=== PATIENT | female | born 1955 | race Caucasian/White ===

== ENCOUNTER → 2018-01-05 20:45 | Outpatient (CLI) | payer MEDICARE, MEDICAID | END | disposition home or self-care (01) | LOC: D.MAMMO 15:00 | DX: Z12.31 Encounter for screening mammogram for malignant neoplasm of breast (principal) ==

== ENCOUNTER 2018-07-12 05:37 | Day surgery (SDC) | payer MEDICARE, MEDICAID ==
[~2018-07-12] VITALS: Ht 152.4 cm; Wt 107.7 kg
[2018-07-12 05:58] LABS: HEMATOCRIT 38.5 % (36.0-48.0); HEMOGLOBIN 12.8 g/dL (12-16); MCH 28.2 pg (26.0-34.0); MCHC 33.2 g/dL (31.0-37.0); MCV 84.8 fL (80.0-100.0); MEAN PLATELET VOLUME 10.1 fL (7.4-10.4); RBC 4.54 10x6/uL (4.00-5.40); RDW 14.3 % (11.5-14.5); WBC 7.2 10x3/uL (4.8-10.8)
[2018-07-12 06:15] LABS: CALCIUM 8.8 mg/dL (8.5-10.1); CARBON DIOXIDE 21.7 mmol/L (21.0-32.0); CREATININE - SERUM 1.2 mg/dL (0.6-1.3); POTASSIUM - SERUM 3.7 mmol/L (3.5-5.1)
[2018-07-12] MEDS ORDERED: GABAPENTIN100 MG PO (06:59)
[2018-07-12] MEDS ORDERED: ZOLOFT50 MG PO (07:00)
[2018-07-12] MEDS ORDERED: TOPAMAX50 MG PO (07:01)
[2018-07-12] MEDS ORDERED: MOBIC7.5 MG PO (07:01)
[2018-07-12] MEDS ORDERED: CALCIUM 600 +1 EAC3 PO (07:02)
[2018-07-12] MEDS ORDERED: BAYER CHEWABLE81 MG PO (07:02)
[2018-07-12] MEDS ORDERED: HYDROCODON-ACE1 EAC7 PO (07:03)
[2018-07-12] MEDS ORDERED: FLUTICASONE PRO16 GM NASAL (07:03)
[2018-07-12] MEDS ORDERED: FUROSEMIDE20 MG PO (07:03)
[2018-07-12] MEDS ORDERED: ATARAX 25 MG TA25 MG PO (07:04)
[2018-07-12] MEDS ORDERED: PRINIVIL20 MG PO (07:04)
[2018-07-12] MEDS ORDERED: POTASSIUM99 M1 PO (07:05)
[2018-07-12] MEDS ORDERED: OMEPRAZOLE40 MG PO (07:05)
[2018-07-12] MEDS ORDERED: VESICARE10 MG PO (07:05)
[2018-07-12] MEDS ORDERED: VITAMIN E200 UNI1 PO (07:05)
[2018-07-12 07:10] VITALS: BP 123/45; Ht 152.4 cm; Wt 107.7 kg
--- NOTE | 2018-07-12 13:50 | OP ---
PATIENT NAME: HILLARY HE MEDICAL RECORD: [id number] :53 LOCATION:[facility] ADMISSION DATE: SURGEON: ALLAN HERNANDEZ DO DATE OF OPERATION: 07/12/2018 PROCEDURE: EGD with biopsies. INDICATIONS FOR PROCEDURE: Dysphagia and GERD. SCOPE: Olympus video gastroscope. MEDICATIONS: Propofol 180 mg IV per anesthesia. ESTIMATED BLOOD LOSS: Minimal. COMPLICATIONS: None. FINDINGS AND DESCRIPTION OF PROCEDURE: Informed consent was given. The patient was made comfortable with the above medication. After reaching an adequate level of sedation by slow IV push, the patient was placed on her left side. The endoscope was advanced under direct visualization through the mouth to the second portion of the duodenum. In the upper esophagus, just distal to the upper esophageal sphincter and located at 18 cm from the incisors, there was a small area of raised tissue, which was approximately 3-4 mm in diameter. Two cold forceps biopsies were taken of this site with the appearance that the entire area of abnormal tissue was removed. These will be submitted for histopathology. The endoscope was advanced further down the esophagus to the GE junction. There were no strictures, rings, or other abnormalities encountered throughout the esophagus. At the GE junction, there was mild evidence of LA class A reflux-induced esophagitis. The endoscope was advanced beyond the GE junction into the stomach and retroflexed to view the cardia, where a small sliding hiatal hernia was present. The fundus appeared normal. Throughout the body, antrum, and prepyloric regions of the stomach, there were patchy areas of erythema and granularity consistent with gastritis. Random cold forceps biopsies were taken to submit for histopathology and to rule out the presence of H. pylori. The endoscope was advanced beyond the pylorus into the duodenum. The entire examined duodenum appeared normal to the second portion. The endoscope was withdrawn from the patient. The patient tolerated the procedure well and there were no complications. IMPRESSIONS: 1. Esophageal nodule at 18 cm as described above, biopsies taken. 2. LA class A reflux-induced esophagitis. 3. Small sliding hiatal hernia. 4. Gastritis. PLAN AND RECOMMENDATIONS: 1. Discharge home when recovery parameters are met. 2. GERD diet and reflux precautions. 3. Continue current medications, including omeprazole 40 mg daily. 4. We will arrange for a modified barium swallow regarding the patient's symptoms of oropharyngeal dysphagia. 5. Follow up biopsy specimen results with further recommendations to follow biopsy results and modified barium swallow. OPERATIVE REPORT [id number] HILLARY HE TRANSINT:[id number] Voice Confirmation ID: [id number] DOCUMENT ID: [id number] ALLAN HERNANDEZ DO at 1350 CC: [id number] DICTATION DATE: 07/12/18 0803 BATTERY CHECKER: 07/12/18 0908 [facility] 07/12/[address] [address]
== END 2018-07-12 09:50 | disposition home or self-care (01) ==
LOC: D.OPS 05:37
PROVIDERS: Anesthesiology
DX: R13.10 Dysphagia, unspecified (principal); K21.9 Gastro-esophageal reflux disease without esophagitis; K21.0 Gastro-esophageal reflux disease with esophagitis; K44.9 Diaphragmatic hernia without obstruction or gangrene; K29.70 Gastritis, unspecified, without bleeding; I10 Essential (primary) hypertension; R00.1 Bradycardia, unspecified; M19.90 Unspecified osteoarthritis, unspecified site; E66.01 Morbid (severe) obesity due to excess calories; H40.9 Unspecified glaucoma; G47.33 Obstructive sleep apnea (adult) (pediatric); Z79.82 Long term (current) use of aspirin; Z79.891 Long term (current) use of opiate analgesic; Z79.1 Long term (current) use of non-steroidal anti-inflammatories (NSAID); Z88.0 Allergy status to penicillin; Z88.2 Allergy status to sulfonamides; Z01.812 Encounter for preprocedural laboratory examination

== ENCOUNTER 2018-07-19 06:00 | Day surgery (SDC) | payer MEDICARE, MEDICAID ==
[~2018-07-19] VITALS: Ht 152.4 cm; Wt 107.3 kg
[~2018-07-19 06:00] MED LIST: ATARAX 25 MG TA25 MG PO; BAYER CHEWABLE81 MG PO; CALCIUM 600 +1 EAC3 PO; FLUTICASONE PRO16 GM NASAL; FUROSEMIDE20 MG PO; GABAPENTIN100 MG PO; HYDROCODON-ACE1 EAC7 PO; MOBIC7.5 MG PO; OMEPRAZOLE40 MG PO; POTASSIUM99 M1 PO; PRINIVIL20 MG PO; TOPAMAX50 MG PO; VESICARE10 MG PO; VITAMIN E200 UNI1 PO; ZOLOFT50 MG PO
[2018-07-19 06:33] LABS: ANION GAP 16.3 mmol/L (8-16); CALCIUM 8.7 mg/dL (8.5-10.1); CARBON DIOXIDE 23.3 mmol/L (21.0-32.0); POTASSIUM - SERUM 3.6 mmol/L (3.5-5.1)
[2018-07-19 06:50] LABS: HEMATOCRIT 36.2 % (36.0-48.0); MCH 27.8 pg (26.0-34.0); MCHC 33.1 g/dL (31.0-37.0); MEAN PLATELET VOLUME 10.3 fL (7.4-10.4); RBC 4.31 10x6/uL (4.00-5.40); RDW 14.2 % (11.5-14.5); WBC 7.6 10x3/uL (4.8-10.8)
[2018-07-19 07:10] VITALS: BP 120/51; Ht 152.4 cm; Wt 107.3 kg
--- NOTE | 2018-07-19 12:17 | OP ---
PATIENT NAME: HILLARY HE MEDICAL RECORD: [id number] :53 LOCATION:[facility] ADMISSION DATE: SURGEON: ALLAN HERNANDEZ DO DATE OF OPERATION: 07/19/2018 PROCEDURE: Colonoscopy with polypectomy. INDICATIONS FOR PROCEDURE: Screening for colorectal cancer. SCOPE: Olympus video pediatric colonoscope. MEDICATIONS: Propofol 350 mg IV per anesthesia. WITHDRAWAL TIME: 17 minutes. ESTIMATED BLOOD LOSS: Minimal. COMPLICATIONS: None. FINDINGS: Informed consent was given. The patient was made comfortable with the above medication. After reaching an adequate level of sedation by slow IV push, the patient was placed on her left side. A digital rectal examination was performed and was normal. The endoscope was then advanced under direct visualization through the rectum to the cecum, confirmed by the presence of the appendiceal orifice and ileocecal valve. The endoscope was slowly withdrawn and mucosa was carefully examined. Prep quality was fair. There were multiple benign-appearing polyps visualized on today's examination. In the ascending colon, there was a benign-appearing sessile polyp, which measured approximately 3 mm in diameter. It was removed using hot forceps in one piece and completely retrieved. In the transverse colon, there was a single, benign-appearing polyp, which measured approximately 2-3 mm in diameter. It was removed using a hot forceps in one piece and completely retrieved. In the descending colon, there were two separate polyps which were benign-appearing and sessile. They ranged in size from 3-5 mm in diameter. They were both removed using a hot snare in one piece and completely retrieved. In the rectum, there were two separate benign-appearing sessile polyps, which ranged in size from 2-3 mm in diameter. They were both removed using hot forceps in one piece and completely retrieved. Retroflexion was performed in the rectum with visualization of grade I internal hemorrhoids without bleeding. The endoscope was then unretroflexed and withdrawn from the patient. The patient tolerated the procedure well, and there were no complications. IMPRESSION: 1. Multiple polyps as described above removed using a combination of a hot snare and hot forceps. 2. Grade I internal hemorrhoids without active bleeding. PLAN AND RECOMMENDATIONS: 1. Discharge home when recovery parameters are met. 2. Follow up biopsy specimen results. 3. High-fiber diet. 4. Continue current medications. 5. Recall colonoscopy in 3-5 years for surveillance based on a personal history of polyps. OPERATIVE REPORT [id number] HILLARY HE TRANSINT:[id number] Voice Confirmation ID: [id number] DOCUMENT ID: [id number] ALLAN HERNANDEZ DO at 1217 CC: [id number] DICTATION DATE: 07/19/18 0859 PEDIATRIC SPEECH THERAPIST: 07/19/18 1147 [facility] 07/19/18 [place] [id number]
== END 2018-07-19 09:52 | disposition home or self-care (01) ==
LOC: D.OPS 06:00
PROVIDERS: Anesthesiology
DX: Z12.11 Encounter for screening for malignant neoplasm of colon (principal); D12.2 Benign neoplasm of ascending colon; D12.4 Benign neoplasm of descending colon; D12.3 Benign neoplasm of transverse colon; K62.1 Rectal polyp; K64.8 Other hemorrhoids; Z01.812 Encounter for preprocedural laboratory examination

== ENCOUNTER → 2018-08-08 12:22 | Outpatient (CLI) | payer MEDICARE, MEDICAID ==
[2018-07-19 07:10] VITALS: BMI 46.1
== END | disposition home or self-care (01) ==
LOC: D.RAD 12:22
PROVIDERS: ATTEND Internal Medicine Gastroenterology
DX: R13.12 Dysphagia, oropharyngeal phase (principal)

== ENCOUNTER 2020-01-17 08:00 | Outpatient (CLI) | payer MEDICARE ==
[2018-07-19 07:10] VITALS: BMI 46.1
== END 2020-01-17 15:28 | disposition home or self-care (01) ==
LOC: D.MAMMO 08:00
PROVIDERS: ATTEND Family Medicine
DX: Z12.31 Encounter for screening mammogram for malignant neoplasm of breast (principal)